=== PATIENT | male | born 1995 | race Caucasian/White ===

== ENCOUNTER 2021-06-12 21:15 | Emergency (ER) | payer BC, OTHER ==
[2021-06-12] MEDS ORDERED: Lidocaine 1% 20 ML MDV INJECT ONE (21:26)
[2021-06-12] MEDS ORDERED: Lidocaine 1% 20 ML MDV ONE (21:27)
--- NOTE | 2021-06-12 21:32 | EDM.PDOC ---
ED HPI GENERAL MEDICAL PROBLEM - General Chief Complaint: General Stated Complaint: L hand injury Time Seen by Provider: 06/12/21 21:21 Source of Information: Reports: Patient History Limitations: Reports: No Limitations - History of Present Illness INITIAL COMMENTS - FREE TEXT/NARRATIVE: 26 YO WM PRESENTS TO ER WITH COMPLAINTS OF LACERATION TO LEFT HAND FROM RAZOR KNIFE. 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 PT REPORTS HE WAS ABLE TO CONTROL BLEEDING AND TRIED TO CLOSE WOUND WITH SUPER GLUE. PT WITH A 10CM LACERATION TO DORSAL SURFACE OF LEFT HAND. NO FUNCTIONAL DEFICIT NOTED. PT ABLE TO OPEN AND CLOSE HAND AND OPPOSE FINGERS WITHOUT DEFICIT. WOUND IS NEUROVASCULARLY INTACT. NO OTHER INJURIES. Onset: Today Location: Reports: Upper Extremity, Left Quality: Reports: Ache Severity: Mild Improves with: Reports: None Worsens with: Reports: None Associated Symptoms: Reports: No Other Symptoms ED ROS GENERAL - Review of Systems Review Of Systems: See Below Constitutional: Reports: No Symptoms HEENT: Reports: No Symptoms Respiratory: Reports: No Symptoms Cardiovascular: Reports: No Symptoms Endocrine: Reports: No Symptoms GI/Abdominal: Reports: No Symptoms : Reports: No Symptoms Musculoskeletal: Reports: No Symptoms Skin: Reports: Wound (10CM LACERATION TO DORSUM OF LEFT HAND) Neurological: Reports: No Symptoms Psychiatric: Reports: No Symptoms Hematologic/Lymphatic: Reports: No Symptoms Immunologic: Reports: No Symptoms ED EXAM, GENERAL - Physical Exam Exam: See Below Exam Limited By: No Limitations General Appearance: Alert, WD/WN, No Apparent Distress Head: Atraumatic, Normocephalic Neck: Normal Inspection, Supple, Non-Tender, Full Range of Motion Respiratory/Chest: No Respiratory Distress, Lungs Clear, Normal Breath Sounds, No Accessory Muscle Use, Chest Non-Tender Cardiovascular: Normal Peripheral Pulses, Regular Rate, Rhythm, No Edema, No Gallop, No JVD, No Murmur, No Rub GI/Abdominal: Normal Bowel Sounds, Soft, Non-Tender, No Organomegaly, No Distention, No Abnormal Bruit, No Mass Back Exam: Normal Inspection, Full Range of Motion, NT Extremities: Normal Inspection, Normal Range of Motion, Non-Tender, Normal Capillary Refill, No Pedal Edema Neurological: Alert, Oriented, CN II-XII Intact, Normal Cognition, Normal Gait, No Motor/Sensory Deficits Psychiatric: Normal Affect, Normal Mood Skin Exam: Wound/Incision (10CM LACERATION TO DORSUM OF LEFT HAND) ED GENERAL MEDICAL PROCEDURES - Laceration/Wound Repair Left Dorsal Hand Lac/wound length in cm: 10 Appearance: Superficial Distal NVT: Neuro & Vascular Intact, No Tendon Injury Anesthetic Type: Local Local Anesthesia - Lidocaine (Xylocaine): 1% Plain Local Anesthetic Volume: Other (8) Skin Prep: Chlorhexidine (Hibiciens), Saline, Sterile Drape Exploration/Debridement/Repair: Wound Explored, Explored to Base Closed with: Sutures Suture Size: 4-0 # of Sutures: 8 Sterile Dressing Applied: Provider Tetanus Status Addressed: Yes Complications: No Departure - Departure Time of Disposition: 21:50 Disposition: Home, Self-Care 01 Condition: Good Clinical Impression: Hand laceration Qualifiers: Encounter type: initial encounter Foreign body presence: without foreign body Laterality: left Qualified Code(s): S61.412A - Laceration without foreign body of left hand, initial encounter - Discharge Information Instructions: Laceration Care, Adult Referrals: Sharmaine Fish MD [Primary Care Provider] - Forms: ED Department Discharge, ED Return to Work/School Form Additional Instructions: 1. DISCHARGE HOME 2. WOUND CARE INSTRUCTIONS GIVEN 3. SUTURE REMOVAL 10 DAYS 4. RETURN TO ER FOR WORSENING SYMPTOMS 5. FOLLOW UP WITH PCP NEEDED - Assessment/Plan Assessment:: 1. 10CM LACERATION TO DORSUM OF LEFT HAND Plan: 1. DISCHARGE HOME 2. WOUND CARE INSTRUCTIONS GIVEN 3. SUTURE REMOVAL 10 DAYS 4. RETURN TO ER FOR WORSENING SYMPTOMS 5. FOLLOW UP WITH PCP NEEDED
[2021-06-12] MEDS ORDERED: Diphtheria,Pertussis(Acell),Tetanus Vaccine 0.5 ML Syringe IM ONE (21:47)
[2021-06-13] MEDS ORDERED: Lidocaine 1% 20 ML MDV INJECT ONE (21:26)
== END 2021-06-12 22:08 | disposition home or self-care (01) ==
LOC: KA.ED 21:15
DX: S61.412A Laceration without foreign body of left hand, initial encounter (principal); Z23 Encounter for immunization; W26.0XXA Contact with knife, initial encounter; Y99.0 Civilian activity done for income or pay
CPT/HCPCS: 12004; 90471; 90715; 99282-25